=== PATIENT | female | born 1985 | race African-American/Black ===

== ENCOUNTER 2016-10-15 16:34 | Outpatient (CLI) | payer MEDICAID ==
[2016-10-15] MEDS ORDERED: HYDROXYZINE PAMOATE 50 MG CAPSULE PO ONE (16:52)
[2016-10-15] MEDS ORDERED: HYDROXYZINE PAMOATE 50 MG CAPSULE ONE (16:56)
[2016-10-15 17:12] LABS: APPEARANCE,URINE CLEAR; BILIRUBIN,URINE NEGATIVE (NEGATIVE); GLUCOSE, URINE NEGATIVE (NEGATIVE); KETONES,URINE NEGATIVE (NEGATIVE); LEUKOCYTE ESTERASE,URINE NEGATIVE (NEGATIVE); NITRITE,URINE NEGATIVE (NEGATIVE); PROTEIN,URINE NEGATIVE (NEGATIVE); UROBILINOGEN,URINE NEGATIVE mg/dL (<2.0)
[2016-10-15 17:38] LABS: URINE BARBITURATES SCREEN NEGATIVE; URINE METHADONE SCREEN NEGATIVE; URINE OPIATES LOW NEGATIVE; URINE PHENCYCLIDINE SCREEN NEGATIVE
[2016-10-15 18:44] LABS: CHLAM PCR NOT DETECTED (NOT DETECT)
== END 2016-10-15 17:40 | disposition home or self-care (01) ==
LOC: LC 16:34
PROVIDERS: ATTEND Specialist
PROC: 4A1HXCZ Monitoring of Products of Conception, Cardiac Rate, External Approach (ICD-10-PCS; principal; 2016-10-15)
DX: O26.893 Other specified pregnancy related conditions, third trimester (principal); R10.2 Pelvic and perineal pain; Z3A.29 29 weeks gestation of pregnancy
CPT/HCPCS: 59899; 87210; 81001; 87081; 80307; 87491; 87591; J3490

== ENCOUNTER 2016-11-23 01:46 | Outpatient (CLI) | payer MEDICAID ==
[2016-11-23] MEDS ORDERED: ONDANSETRON 4 MG TAB.RAPDIS PO ONE (02:51)
[2016-11-23 02:52] LABS: APPEARANCE,URINE CLEAR; BILIRUBIN,URINE NEGATIVE (NEGATIVE); GLUCOSE, URINE NEGATIVE (NEGATIVE); KETONES,URINE NEGATIVE (NEGATIVE); LEUKOCYTE ESTERASE,URINE NEGATIVE (NEGATIVE); NITRITE,URINE NEGATIVE (NEGATIVE); PROTEIN,URINE NEGATIVE (NEGATIVE); URINE SPECIFIC GRAVITY 1.004; UROBILINOGEN,URINE NEGATIVE mg/dL (<2.0)
[2016-11-23] MEDS ORDERED: ONDANSETRON 4 MG TAB.RAPDIS ONE (02:57)
[2016-11-23 03:06] LABS: URINE BARBITURATES SCREEN NEGATIVE; URINE METHADONE SCREEN NEGATIVE; URINE OPIATES LOW NEGATIVE; URINE PHENCYCLIDINE SCREEN NEGATIVE
[2016-11-23] MEDS ORDERED: RINGERS SOLUTION,LACTATED 2,000 ML IV PRN (22:55)
[2016-11-23] MEDS ORDERED: HYDROXYZINE PAMOATE 50 MG CAPSULE PO ONE (23:15)
== END 2016-11-23 05:17 | disposition home or self-care (01) ==
LOC: LC 01:46
PROVIDERS: ATTEND Obstetrics & Gynecology
PROC: 4A1HXCZ Monitoring of Products of Conception, Cardiac Rate, External Approach (ICD-10-PCS; principal; 2016-11-23)
DX: O47.03 False labor before 37 completed weeks of gestation, third trimester (principal); O21.2 Late vomiting of pregnancy; Z3A.34 34 weeks gestation of pregnancy
CPT/HCPCS: 59025; 82962; 81001; 80307; S0119

== ENCOUNTER 2016-11-23 21:32 | Outpatient (CLI) | payer MEDICAID ==
--- NOTE | 2016-11-23 21:36 | Non Stress Test Report ---
Non Stress Test Datetime Report Generated by CPN: 11/23/2016 21:36 DEMOGRAPHIC Test Number: 1 EGA NST: 34.6 INDICATION Indication for Study: Ordered by Provider MONITORING Monitor Explained: Monitor Explained; Test Explained; Patient Verbalized Understanding Time on Monitor: 11/23/2016 02:01 Time off Monitor: 11/23/2016 03:00 NST Duration: 59 NST INTERVENTIONS NST Interventions: None BABY A: [id number] BABY A Movement : Present Contraction Frequency : irregular FHR Baseline : 145 Accelerations : 15X15 Variability : Moderate 6-25bpm NST Review: Meets Criteria for Reactive NST NST Review and Verified By : B Vega, RN NST Results: Reactive NST REPORT Report Trigger: Send Report
[2016-11-23 22:07] LABS: APPEARANCE,URINE CLEAR; BILIRUBIN,URINE NEGATIVE (NEGATIVE); GLUCOSE, URINE NEGATIVE (NEGATIVE); KETONES,URINE NEGATIVE (NEGATIVE); LEUKOCYTE ESTERASE,URINE NEGATIVE (NEGATIVE); NITRITE,URINE NEGATIVE (NEGATIVE); PROTEIN,URINE NEGATIVE (NEGATIVE); URINE SPECIFIC GRAVITY 1.018; UROBILINOGEN,URINE NEGATIVE mg/dL (<2.0)
[2016-11-23 22:20] LABS: URINE BARBITURATES SCREEN NEGATIVE; URINE METHADONE SCREEN NEGATIVE; URINE OPIATES LOW NEGATIVE; URINE PHENCYCLIDINE SCREEN NEGATIVE
[2016-11-23] MEDS ORDERED: HYDROXYZINE PAMOATE 50 MG CAPSULE ONE (22:59)
[2016-11-23] MEDS ORDERED: HYDROXYZINE PAMOATE 50 MG CAPSULE PO ONE (23:10)
[2016-11-23] MEDS: RINGERS SOLUTION,LACTATED 1,000 ML IV PRN (23:29)
[2016-11-24] MEDS: RINGERS SOLUTION,LACTATED 1,000 ML IV PRN (00:05)
--- NOTE | 2016-11-24 01:02 | Non Stress Test Report ---
Non Stress Test Datetime Report Generated by CPN: 11/24/2016 01:02 DEMOGRAPHIC EGA NST: 34.6 INDICATION Indication for Study: Ordered by Provider MONITORING Monitor Explained: Monitor Explained Time on Monitor: 11/23/2016 21:55 Time off Monitor: 11/24/2016 00:56 NST Duration: 181 NST INTERVENTIONS NST Interventions: IV Fluids; Reposition Patient Physician Notified NST: Jasiel BABY A Movement : Present Contraction Frequency : occasional FHR Baseline : 140 Accelerations : 15X15 Decelerations : None Variability : Moderate 6-25bpm NST Review: Meets Criteria for Reactive NST NST Review and Verified By : CHEN Salazar NST Results: Reactive NST REPORT Report Trigger: Send Report
== END 2016-11-24 01:02 | disposition home or self-care (01) ==
LOC: LC 21:32
PROVIDERS: ATTEND Specialist
PROC: 4A1HXCZ Monitoring of Products of Conception, Cardiac Rate, External Approach (ICD-10-PCS; principal; 2016-11-23)
DX: O47.03 False labor before 37 completed weeks of gestation, third trimester (principal); Z3A.34 34 weeks gestation of pregnancy
CPT/HCPCS: 59025; 81001; 80307; J3490

== ENCOUNTER 2016-11-28 11:40 | Outpatient (CLI) | payer MEDICAID ==
[2016-11-28 12:14] LABS: APPEARANCE,URINE CLEAR; BILIRUBIN,URINE NEGATIVE (NEGATIVE); GLUCOSE, URINE NEGATIVE (NEGATIVE); KETONES,URINE NEGATIVE (NEGATIVE)
[2016-11-28 12:15] LABS: LEUKOCYTE ESTERASE,URINE NEGATIVE (NEGATIVE); NITRITE,URINE NEGATIVE (NEGATIVE); PROTEIN,URINE 30 mg/dL (NEGATIVE); RBC,URINE 0-1 /HPF; UROBILINOGEN,URINE NEGATIVE mg/dL (<2.0); WBC,URINE 0-1 /HPF
[2016-11-28 12:31] LABS: URINE BARBITURATES SCREEN NEGATIVE; URINE METHADONE SCREEN NEGATIVE; URINE OPIATES LOW NEGATIVE; URINE PHENCYCLIDINE SCREEN NEGATIVE
--- NOTE | 2016-11-28 12:55 | Non Stress Test Report ---
Non Stress Test Datetime Report Generated by CPN: 11/28/2016 12:54 DEMOGRAPHIC EGA NST: 35.4 INDICATION Indication for Study: Ordered by Provider Indication for Study (NST) Other: LC MONITORING Monitor Explained: Monitor Explained; Test Explained; Patient Verbalized Understanding Time on Monitor: 11/28/2016 11:53 Time off Monitor: 11/28/2016 12:45 NST Duration: 52 NST INTERVENTIONS NST Interventions: None Physician Notified NST: Dr Payton BABY A: [id number] BABY A Movement : Present Contraction Frequency : x2 FHR Baseline : 155 Accelerations : 15X15 Decelerations : None Variability : Moderate 6-25bpm NST Review: Meets Criteria for Reactive NST NST Review and Verified By : D Bellavance RNC NST Results: Reactive NST REPORT Report Trigger: Send Report
== END 2016-11-28 12:55 | disposition home or self-care (01) ==
LOC: LC 11:40
PROVIDERS: ATTEND Student in an Organized Health Care Education/Training Program
PROC: 4A1HXCZ Monitoring of Products of Conception, Cardiac Rate, External Approach (ICD-10-PCS; principal; 2016-11-28)
DX: O47.03 False labor before 37 completed weeks of gestation, third trimester (principal); Z3A.35 35 weeks gestation of pregnancy
CPT/HCPCS: 59025; 80307; 81001

== ENCOUNTER 2016-11-28 23:45 | Observation (INO) | payer MEDICAID ==
[2016-11-29 00:29] LABS: URINE BARBITURATES SCREEN NEGATIVE; URINE METHADONE SCREEN NEGATIVE; URINE OPIATES LOW NEGATIVE; URINE PHENCYCLIDINE SCREEN NEGATIVE
[2016-11-29 00:31] LABS: APPEARANCE,URINE CLEAR; BILIRUBIN,URINE NEGATIVE (NEGATIVE); GLUCOSE, URINE NEGATIVE (NEGATIVE); KETONES,URINE NEGATIVE (NEGATIVE); LEUKOCYTE ESTERASE,URINE NEGATIVE (NEGATIVE); NITRITE,URINE NEGATIVE (NEGATIVE); PROTEIN,URINE NEGATIVE (NEGATIVE); URINE SPECIFIC GRAVITY 1.006; UROBILINOGEN,URINE NEGATIVE mg/dL (<2.0)
[2016-11-29 00:47] LABS: BACTERIA,URINE TRACE /HPF
[2016-11-29] MEDS ORDERED: TERBUTALINE SULFATE INJ/PF 1 MG/1 ML SDV SUBCUT ONE ×2 (01:07→02:18)
[2016-11-29] MEDS ORDERED: TERBUTALINE SULFATE INJ/PF 1 MG/1 ML SDV ONE (01:13)
[2016-11-29] MEDS: RINGERS SOLUTION,LACTATED 1,000 ML IV PRN ×3 (01:14→03:48)
[2016-11-29] MEDS ORDERED: NALBUPHINE HCL INJ 10 MG/1 ML AMPULE INJ ONE (01:58)
[2016-11-29] MEDS ORDERED: NALBUPHINE HCL INJ 10 MG/1 ML AMPULE ONE (02:01)
[2016-11-29] MEDS ORDERED: NIFEDIPINE 10 MG CAPSULE PO ONE ×2 (03:23→08:30)
[2016-11-29] MEDS ORDERED: NIFEDIPINE 10 MG CAPSULE ONE ×3 (03:28→03:29)
[2016-11-29] MEDS ORDERED: DIPHENHYDRAMINE HCL 50 MG CAPSULE PO ONE (05:45)
[2016-11-29] MEDS ORDERED: RINGERS SOLUTION,LACTATED 1,000 ML IV PRN (05:57)
[2016-11-29] MEDS ORDERED: DIPHENHYDRAMINE HCL 25 MG CAPSULE ONE (06:08)
[2016-11-29] MEDS ORDERED: HYDROXYZINE PAMOATE 50 MG CAPSULE PO PRN (09:23)
[2016-11-29] MEDS ORDERED: HYDROXYZINE PAMOATE 50 MG CAPSULE ONE (09:27)
[2016-11-29] MEDS ORDERED: DEXTROSE 5%-LACTATED RINGERS 1,000 ML IV PRN (09:53)
--- NOTE | 2016-12-02 15:22 | Admission Physical ---
Datetime Report Generated by CPN: 12/02/2016 15:22 CURRENT ADMISSION Chief Complaint: Uterine Contractions Indication for Induction: Not Applicable Admit Plan: Observation/Evaluation ALLERGIES Medication Allergies: Yes Medication Allergies: aspirin (11/28/2016) Medication Allergies: aspirin (11/23/2016) Medication Allergies: aspirin (10/15/2016) Medication Allergies: aspirin (05/04/2016) Latex: No Latex Allergies OBSTETRICAL HISTORY EDC: 12/29/2016 00:00 : 4 Para: 2 Term: 1 : 1 SAB: 1 IAB: 0 Ectopic: 0 Livin Cesareans: 2 VBACs: 0 Multiple Births: 0 Gestational Diabetes: Yes Rh Sensitization: No Incompetent Cervix: No GERARD: No Infertility: No ART Treatment: No Uterine Anomaly: No IUGR: No Hx Previous C/S: Yes Macrosomia: No Hx Loss/Stillborn: No PIH: No Hx : No Placenta Previa/Abruption: No Depression/PP Depression: No PTL/PROM: Yes Post Hemorrhage: No Current Procedures: Ultrasound; NST Obstetrical History Comments: G1- 11/09 C- section 26 weeker G2- 11/15 37 weeker failed G3- SAB G4- 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 Surgery: No Heart Disease: No Hosp/Surgery: Yes Autoimmune Disorder: No Anesthetic Complications: No Kidney Disease: No Abnormal Pap Smear: No Neuro/Epilepsy: No Psychiatric Disorders: No Other Medical Diseases: No Hepatitis/Liver Disease: No Significant Family History: No Varicosities/Phlebitis: No Trauma/Violence : No Thyroid Dysfunction: No Medical History Comments: hospitalized childbirth x2 INFECTIOUS HISTORY Gonorrhea: No Genital Herpes: No Chlamydia: No Tuberculosis: No Syphilis: No Hepatitis: No HIV/AIDS Exposure: No Rash or Viral Illness: No HPV: No PHYSICAL EXAM General: Normal HEENT: Normal Neurologic: Normal Thyroid: Normal Heart: Normal Lungs: Normal Breast: Deferred Back: Normal Abdomen: Normal Genitourinary Exam: Normal Extremities: Normal DTRs: Normal Pelvic Type: Adequate Vital Signs: Reviewed; Within Normal Limits VAGINAL EXAM Dilatation: ft Effacement: th Station: oop FETUS A Monitoring: External US FHR- Baseline: 130's Variability: Moderate 6-25bpm Accelerations: 15X15 Decelerations: None Admit Comment: 31yo at 35+5ega with h/o C/S x 2. She presented at approx 0130 with ctx q 1-2 minutes but no cervical change. Terb x 2 given and only minimal response. Nifedipine given. Still no cervical change at 0530. Pt agreed to Benadryl with rest and re-eval. Uterine incision not ttp. No e/o labor but ctx. may need c/s if labor or e/o uterine scar ttp PLANS FOR LABOR AND DELIVERY Labor and Delivery: None Pain Management: Spinal Feeding Preference: Both Circumcision: Yes INFORMED CONSENT Informed Consent Obtained: Section Delivery; Risks, Benefits and Alternatives Discussed Signature: with User ID: [email or web address]
--- NOTE | 2017-01-09 17:17 | PDOC DISCHARGE SUMMARY ---
General - Admit/Disc Date/PCP Admission Date/Primary Care Provider: 11/29/16 05:41 CATHY ZAVALETA MD Discharge Date: 11/30/16 - Discharge Diagnosis (1) Third trimester at less than 36 weeks Is this a current diagnosis for this admission?: Yes (2) Uterine contractions during Is this a current diagnosis for this admission?: Yes (3) Status post repeat low transverse section Is this a current diagnosis for this admission?: YesSummary: pt is 35 6/7 wks with h/o previous c/s delivery x 2 who presented to L& D with regular contractions but no cervical change. Was given tocolytics and rest. Admitted for observation in light of contractions and previous surgical deliveries. contractions were resolved and cervix never changed therefore not in labor. released home with instructions to keep appts and plan for repeat c/ section. - Additional Information Home Medications: Pnv No.122/Iron/Folic Acid [ Multi Tablet] 1 tab PO DAILY 10/15/16 Glyburide 1 tab PO BID 11/23/16 Ibuprofen [Motrin 800 mg Tablet] 800 mg PO Q8 #90 tablet 12/18/16 Oxycodone HCl/Acetaminophen [Percocet 5-325 mg Tablet] 1 tab PO Q4HP PRN #30 tablet 12/18/16 History of Present Illness History of Present Illness: NOEMY RAMIREZ is a 31 year old female Hospital Course Hospital Course: as above Physical Exam - Physical Exam General appearance: PRESENT: no acute distress, cooperative Head exam: PRESENT: atraumatic GI/Abdominal exam: PRESENT: soft - gravid abdomem Neurological exam: PRESENT: alert, oriented to time - Obstetrical Exam External Genitalia: normal Vagina: not examined Dilation (cm): 1 Effacement (%): 25 Station: -3 Fundal Height: 3/u - 4/u Tender: No
== END 2016-11-29 13:52 | disposition home or self-care (01) ==
LOC: LC 23:45 → LR 11-29 05:41
PROVIDERS: ADMIT Student in an Organized Health Care Education/Training Program; ATTEND Student in an Organized Health Care Education/Training Program
PROC: 4A0HXCZ Measurement of Products of Conception, Cardiac Rate, External Approach (ICD-10-PCS; principal; 2016-11-29)
DX: O47.03 False labor before 37 completed weeks of gestation, third trimester (principal); O24.415 Gestational diabetes mellitus in pregnancy, controlled by oral hypoglycemic drugs; Z3A.35 35 weeks gestation of pregnancy; Z87.891 Personal history of nicotine dependence
CPT/HCPCS: 82962; 81001 ×2; 80307; 59025; J3490 ×4; J2300; J3105; G0378; G0379

== ENCOUNTER 2016-11-30 18:24 | Outpatient (CLI) | payer MEDICAID ==
--- NOTE | 2016-11-30 19:12 | Non Stress Test Report ---
Non Stress Test Datetime Report Generated by CPN: 11/30/2016 19:12 DEMOGRAPHIC Test Number: 4 EGA NST: 35.6 EGA NST: 35.5 INDICATION Indication for Study: Diabetes Mellitus; Ordered by Provider MONITORING Monitor Explained: Monitor Explained; Test Explained; Patient Verbalized Understanding Time on Monitor: 11/30/2016 18:51 Time on Monitor: 11/29/2016 13:17 Time off Monitor: 11/29/2016 13:38 NST Duration: 21 NST INTERVENTIONS NST Interventions: PO Hydration; Reposition Patient NST Interventions: PO Hydration Physician Notified NST: Dr. Sonny BABY A: [id number] BABY A Contraction Frequency : X1 FHR Baseline : 145 Accelerations : 15X15 Decelerations : None Variability : Moderate 6-25bpm NST Review: Meets Criteria for Reactive NST NST Review and Verified By : Kenneth Banks RN NST REPORT Report Trigger: Send Report
[2016-11-30 19:21] LABS: APPEARANCE,URINE CLEAR; BILIRUBIN,URINE NEGATIVE (NEGATIVE); GLUCOSE, URINE NEGATIVE (NEGATIVE); KETONES,URINE NEGATIVE (NEGATIVE); LEUKOCYTE ESTERASE,URINE NEGATIVE (NEGATIVE); NITRITE,URINE NEGATIVE (NEGATIVE); PROTEIN,URINE NEGATIVE (NEGATIVE); UROBILINOGEN,URINE NEGATIVE mg/dL (<2.0)
[2016-11-30 19:27] LABS: BACTERIA,URINE 1+ /HPF
[2016-11-30] MEDS ORDERED: NIFEDIPINE 10 MG CAPSULE PO ONE ×3 (19:28→20:15)
[2016-11-30 19:31] LABS: URINE BARBITURATES SCREEN NEGATIVE; URINE METHADONE SCREEN NEGATIVE; URINE OPIATES LOW NEGATIVE; URINE PHENCYCLIDINE SCREEN NEGATIVE
[2016-11-30] MEDS ORDERED: NIFEDIPINE 10 MG CAPSULE ONE (20:03)
== END 2016-11-30 21:36 | disposition home or self-care (01) ==
LOC: LC 18:24
PROVIDERS: ATTEND Student in an Organized Health Care Education/Training Program
DX: O24.419 Gestational diabetes mellitus in pregnancy, unspecified control (principal); Z3A.35 35 weeks gestation of pregnancy
CPT/HCPCS: 59025; 81001; 80307; J3490

== ENCOUNTER 2016-12-10 14:46 | Outpatient (CLI) | payer MEDICAID ==
[2016-12-10 15:22] LABS: APPEARANCE,URINE SLIGHTLY-CLOUDY; BILIRUBIN,URINE NEGATIVE (NEGATIVE); GLUCOSE, URINE NEGATIVE (NEGATIVE); KETONES,URINE NEGATIVE (NEGATIVE); LEUKOCYTE ESTERASE,URINE NEGATIVE (NEGATIVE); NITRITE,URINE NEGATIVE (NEGATIVE); PROTEIN,URINE NEGATIVE (NEGATIVE); URINE SPECIFIC GRAVITY 1.005; UROBILINOGEN,URINE NEGATIVE mg/dL (<2.0)
[2016-12-10 15:43] LABS: URINE BARBITURATES SCREEN NEGATIVE; URINE METHADONE SCREEN NEGATIVE; URINE OPIATES LOW NEGATIVE; URINE PHENCYCLIDINE SCREEN NEGATIVE
== END 2016-12-10 15:50 | disposition home or self-care (01) ==
LOC: LC 14:46
PROVIDERS: ATTEND Student in an Organized Health Care Education/Training Program
DX: O24.415 Gestational diabetes mellitus in pregnancy, controlled by oral hypoglycemic drugs (principal); Z3A.37 37 weeks gestation of pregnancy
CPT/HCPCS: 59025; 80307; 81005

== ENCOUNTER 2016-12-16 07:46 | Outpatient (CLI) | payer MEDICAID ==
[2016-12-16 08:13] LABS: APPEARANCE,URINE CLEAR; BILIRUBIN,URINE NEGATIVE (NEGATIVE); GLUCOSE, URINE NEGATIVE (NEGATIVE); KETONES,URINE NEGATIVE (NEGATIVE); LEUKOCYTE ESTERASE,URINE NEGATIVE (NEGATIVE); NITRITE,URINE NEGATIVE (NEGATIVE); PROTEIN,URINE NEGATIVE (NEGATIVE); URINE SPECIFIC GRAVITY 1.008; UROBILINOGEN,URINE NEGATIVE mg/dL (<2.0)
[2016-12-16 08:36] LABS: URINE BARBITURATES SCREEN NEGATIVE; URINE METHADONE SCREEN NEGATIVE; URINE OPIATES LOW NEGATIVE; URINE PHENCYCLIDINE SCREEN NEGATIVE
[2016-12-16] MEDS ORDERED: HYDROXYZINE PAMOATE 50 MG CAPSULE PO ONE (08:39)
[2016-12-16] MEDS ORDERED: HYDROXYZINE PAMOATE 50 MG CAPSULE ONE (08:52)
[2016-12-16] MEDS ORDERED: RINGERS SOLUTION,LACTATED 1,000 ML IV PRN (12:40)
[2016-12-16] MEDS ORDERED: RINGERS SOLUTION,LACTATED 1,000 ML IV ONE (12:40)
[2016-12-16] MEDS ORDERED: CEFAZOLIN 2 GM/D5W RTU 50 ML IV ONE (12:40)
== END 2016-12-16 09:17 | disposition home or self-care (01) ==
LOC: LC 07:46
PROVIDERS: ATTEND Specialist
PROC: 4A1HXCZ Monitoring of Products of Conception, Cardiac Rate, External Approach (ICD-10-PCS; principal; 2016-12-16)
DX: O47.1 False labor at or after 37 completed weeks of gestation (principal); Z3A.38 38 weeks gestation of pregnancy
CPT/HCPCS: 59025; 81005; 80307; J3490

== ENCOUNTER 2016-12-16 11:40 | Inpatient (IN) | payer MEDICAID ==
[2016-12-16] MEDS ORDERED: RINGERS SOLUTION,LACTATED 1,000 ML IV ONE (12:56)
[2016-12-16] MEDS ORDERED: RINGERS SOLUTION,LACTATED 1,000 ML IV PRN (12:56)
[2016-12-16] MEDS ORDERED: CEFAZOLIN 2 GM/D5W RTU 50 ML IV ONE (12:56)
[2016-12-16] MEDS ORDERED: CITRIC ACID/SODIUM CITRATE ORAL SOLN 15 ML UDCUP ONE (13:35)
[2016-12-16] MEDS ORDERED: CEFAZOLIN 2 GM/D5W RTU 2 GM/50 ML RTUPB IV ONE (13:35)
[2016-12-16 14:02] LABS: ABSOLUTE LYMPHOCYTES (AUTO) 1.5 10^3/uL (0.5-4.7); ABSOLUTE MONOCYTES (AUTO) 0.8 10^3/uL (0.1-1.4); ABSOLUTE NEUT (AUTO) 10.4 10^3/uL (1.7-8.2); BASOPHILS % (AUTO) 0.3 % (0-2); EOSINOPHILS % (AUTO) 0.2 % (0-6); HEMATOCRIT 36.5 % (36.0-47.0); HEMOGLOBIN 11.5 g/dL (12.0-15.5); LYMPHOCYTES % (AUTO) 11.4 % (13-45); MEAN CORPUSCULAR HEMOGLOBIN 28.7 pg (27.0-33.4); MEAN CORPUSCULAR HGB CONC 31.5 g/dL (32.0-36.0); MEAN CORPUSCULAR VOLUME 91 fl (80-97); MONOCYTES % (AUTO) 6.6 % (3-13); RED CELL DISTRIBUTION WIDTH 15.3 % (11.5-14.0); SEGMENTED NEUTROPHILS % (AUTO) 81.5 % (42-78); WHITE BLOOD COUNT 12.7 10^3/uL (4.0-10.5)
[2016-12-16] MEDS ORDERED: MIDAZOLAM 2 MG/2 ML INJ ONE (14:18)
[2016-12-16] MEDS ORDERED: OXYTOCIN/NORMAL SALINE 20 UNIT/1,000 ML RTUINJ ONE (14:18)
[2016-12-16] MEDS ORDERED: FENTANYL CITRATE INJ/PF 100 MCG/2 ML AMPUL ONE (14:18)
[2016-12-16] MEDS ORDERED: OXYTOCIN 10 UNIT/ML VIAL ONE (14:18)
[2016-12-16] MEDS ORDERED: MORPHINE SULFATE 10 MG/ML INJ ONE (14:19)
[2016-12-16] MEDS ORDERED: OXYTOCIN/NORMAL SALINE 20 UNIT/1,000 ML RTUINJ INJ PRN (16:17)
[2016-12-16] MEDS ORDERED: DIPH/PERTUSS(ACELL)/TETANUS VAC/PF 0.5 ML SYR (>=10YO) IM PRN (16:17)
[2016-12-16] MEDS ORDERED: SIMETHICONE 80 MG TAB.CHEW PO PRN (16:17)
[2016-12-16] MEDS ORDERED: MEASLES,MUMPS&RUBELLA VACC/PF 0.5 ML VIAL SUBCUT PRN (16:17)
[2016-12-16] MEDS ORDERED: PROMETHAZINE HCL INJ 25 MG/1 ML VIAL IM PRN (16:17)
[2016-12-16] MEDS ORDERED: ACETAMINOPHEN 325 MG TABLET PO PRN (16:17)
[2016-12-16] MEDS ORDERED: HYDROMORPHONE HCL INJ/PF 2 MG/ML AMPULE IV PRN (16:17)
[2016-12-16] MEDS ORDERED: ONDANSETRON 4 MG TAB.RAPDIS PO PRN (16:20)
[2016-12-16] MEDS ORDERED: ONDANSETRON HCL INJ/PF 4 MG/2 ML SDV IV PRN (16:20)
[2016-12-16] MEDS ORDERED: ACETAMINOPHEN 100 ML IV ONE (16:24)
[2016-12-16] MEDS ORDERED: KETOROLAC TROMETHAMINE INJ/PF 30 MG/1 ML SDV IV ONE (16:45)
[2016-12-16] MEDS ORDERED: ACETAMINOPHEN INJ/PF 1000 MG/100 ML SDV IV ONE (16:45)
[2016-12-16] MEDS ORDERED: HYDROMORPHONE HCL INJ/PF 2 MG/ML AMPULE ONE (17:16)
--- NOTE | 2016-12-16 17:51 | Admission Physical ---
Datetime Report Generated by CPN: 12/16/2016 17:50 CURRENT ADMISSION Hx Assessment: The History has been Reviewed and is Current Chief Complaint: Uterine Contractions Chief Complaint: Uterine Contractions Indication for Induction: Not Applicable Admit Plan: Initiate Section Protocol Admit Plan: Observation/Evaluation ALLERGIES Medication Allergies: Yes Medication Allergies: aspirin (11/28/2016) Medication Allergies: aspirin (11/23/2016) Medication Allergies: aspirin (10/15/2016) Medication Allergies: aspirin (05/04/2016) Latex: No Latex Allergies OBSTETRICAL HISTORY EDC: 12/29/2016 00:00 : 4 Para: 2 Term: 1 : 1 SAB: 1 IAB: 0 Ectopic: 0 Livin Cesareans: 2 VBACs: 0 Multiple Births: 0 Gestational Diabetes: Yes Rh Sensitization: No Incompetent Cervix: No GERARD: No Infertility: No ART Treatment: No Uterine Anomaly: No IUGR: No Hx Previous C/S: Yes Macrosomia: No Hx Loss/Stillborn: No PIH: No Hx : No Placenta Previa/Abruption: No Depression/PP Depression: No PTL/PROM: Yes Post Hemorrhage: No Current Procedures: Ultrasound; NST Obstetrical History Comments: G1- 11/09 C- section 26 weeker, breech G2- 11/15 37 weeker failed G3- SAB G4- 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 Surgery: No Heart Disease: No Hosp/Surgery: Yes Autoimmune Disorder: No Anesthetic Complications: No Kidney Disease: No Abnormal Pap Smear: No Neuro/Epilepsy: No Psychiatric Disorders: No Other Medical Diseases: No Hepatitis/Liver Disease: No Significant Family History: No Varicosities/Phlebitis: No Trauma/Violence : No Thyroid Dysfunction: No Medical History Comments: hospitalized childbirth x2 c/sections INFECTIOUS HISTORY Gonorrhea: No Genital Herpes: No Chlamydia: No Tuberculosis: No Syphilis: No Hepatitis: No HIV/AIDS Exposure: No Rash or Viral Illness: No HPV: No PHYSICAL EXAM General: Normal General: Normal HEENT: Normal HEENT: Normal Neurologic: Normal Neurologic: Normal Thyroid: Normal Thyroid: Normal Heart: Normal Heart: Normal Lungs: Normal Lungs: Normal Breast: Normal Breast: Deferred Back: Normal Back: Normal Abdomen: Normal Abdomen: Normal Genitourinary Exam: Normal Genitourinary Exam: Normal Extremities: Normal Extremities: Normal DTRs: Normal DTRs: Normal Pelvic Type: Adequate Pelvic Type: Adequate Vital Signs: Reviewed; Within Normal Limits VAGINAL EXAM Dilatation: ft Effacement: th Station: oop FETUS A EGA: 38.1 EGA: 35.5 Monitoring: External US Monitoring: External US FHR- Baseline: 130's Variability: Moderate 6-25bpm Accelerations: 15X15 Decelerations: None FHR Category: Category I Admit Comment: discussed r/b/a of and consent obtained -declines btl Admit Comment: 31yo at 35+5ega with h/o C/S x 2. She presented at approx 0130 with ctx q 1-2 minutes but no cervical change. Terb x 2 given and only minimal response. Nifedipine given. Still no cervical change at 0530. Pt agreed to Benadryl with rest and re-eval. Uterine incision not ttp. No e/o labor but ctx. may need c/s if labor or e/o uterine scar ttp PLANS FOR LABOR AND DELIVERY Labor and Delivery: None Pain Management: Spinal Feeding Preference: Both Benefit of Breast Feed Discussed: Yes Circumcision: Yes INFORMED CONSENT Informed Consent Obtained: Section Delivery; Risks, Benefits and Alternatives Discussed Signature: with User ID: [email or web address] Signature: with User ID: Sara : with User ID: Sara
[2016-12-16] MEDS ORDERED: OXYTOCIN/NORMAL SALINE 1,000 ML IV PRN (18:23)
--- NOTE | 2016-12-16 18:33 | Delivery Summary ---
Del Sum A-C Datetime Report Generated by CPN: 12/16/2016 18:33 DELIVERY PERSONNEL DELIVERY PERSONNEL: [phone];[phone];[phone] Delivery Doctor:: Gina Winn MD Anesthesiologist:: Migdalia Grayson MD PASSENGER AGENT:: Franck Kruse CRNA Labor and Delivery Nurse:: Mary BERUMEN RNhand roller Nurse:: Marva Chávez RN Tobacco Feeder Catcher:: Mary BERUMEN RN/ ELLA CHÁVEZ RN Nursery Nurse:: Kecia York RN Roofer Apprentice/PRINCIPAL TECHNICAL ARCHITECT: ST Akbar Roofer Apprentice/PRINCIPAL TECHNICAL ARCHITECT: ST Serg Additional Personnel: : Jaydon JIMÉNEZ RN MATERNAL INFORMATION Delivery Anesthesia: Spinal Medications After Delivery: Pitocin Bolus-Please Comment; Pitocin Drip 20 Units/1000ml NSS; Other-Please Comment Meds After Delivery Comment: cytotec 1000mcg ME by MD Maternal Complications: None LABOR SUMMARY EDC: 12/29/2016 00:00 No. Babies in Womb: 1 Attempted: No Labor Anesthesia: None LABOR INFORMATION Reason for Induction: Not Applicable Oxytocin: N/A Group B Beta Strep: negative Antibiotics # of Doses: 0 Steroids Given: None Reason Steroids Not Administered: Not Applicable MEMBRANES Membranes Rupture Method: Artificial Rupture of Membranes: 12/16/2016 14:43 Length of Rupture (hr): 0.02 Amniotic Fluid Color: Clear STAGES OF LABOR Stage 3 hr: 0 Stage 3 min: 2 CSECTION DELIVERY Primary Indication: REPEAT C SECTION IN LABOR CSection Urgency: Non-Scheduled CSection Incidence: Repeat Labor: Labor Elective: Nonelective CSection Incision: Lower Uterine Transverse BABY A INFORMATION Infant Delivery Date/Time: 12/16/2016 14:44 Method of Delivery: Born in Route : No : N/A Forceps: N/A Vacuum Extraction: N/A Shoulder Dystocia : No PRESENTATION/POSITION BABY A Presentation: Cephalic Cephalic Presentation: Vertex Breech Presentation: N/A PLACENTA INFORMATION BABY A Placenta Delivery Time : 12/16/2016 14:46 Placenta Method of Delivery: Manual Removal Placenta Status: Delivered SCORES BABY A Heart Rate 1 min: >100 bpm Resp Effort 1 min: Good Cry Reflex Irritability 1 min: Cough or Sneeze or Pulls Away Muscle Tone 1 min: Active Motion Color 1 min: Blue/Pale Resuscitation Effort 1 min: Tactile Stimulation SCORE 1 MIN: 8 Heart Rate 5 min: >100 bpm Resp Effort 5 min: Good Cry Reflex Irritability 5 min: Cough or Sneeze or Pulls Away Muscle Tone 5 min: Active Motion Color 5 min: Body [place], Extremities Blue Resuscitation Effort 5 min: Tactile Stimulation SCORE 5 MIN: 9 INFANT INFORMATION BABY A Gestational Age at Delivery: 38.1 Gestational Status: Early Term- 37- 38.6 Weeks Infant Outcome : Liveborn Infant Condition : Stable Infant Sex: Male IDENTIFICATION BABY A Infant Verification Date/Time: 12/16/2016 14:55 ID Band Number: [id number] Mother's Name Verified: Yes Infant RN Verifying : Mary BERUMEN RN Additional Verifying Personnel: BL ROULUND, RN WEIGHT/LENGTH BABY A Infant Birthweight (gm): 2765 Infant Weight (lb): 6 Infant Weight (oz): 2 Infant Length (in): 19.25 Length (cm): 48.90 CORD INFORMATION BABY A No. Cord Vessels: 3 Nuchal Cord : Around Neck x1, Loose Cord Blood Taken: Yes-For Eval (Mom's Blood Type - or O+) Suction: None ASSESSMENT BABY A Skin to Skin: Yes Skin to Skin Time (min): 5 BABY B INFORMATION : N/A
[2016-12-16] MEDS: IBUPROFEN 800 MG TABLET PO SCH ×2 (20:38→23:31)
[2016-12-16] MEDS: DOCUSATE SODIUM 100 MG CAPSULE PO SCH (20:38)
[2016-12-16] MEDS ORDERED: KETOROLAC TROMETHAMINE INJ/PF 30 MG/1 ML SDV IV SCH (22:00)
[2016-12-17] MEDS: OXYCODONE-ACETAMINOPHEN 5-325 MG TABLET PO PRN ×2 (00:23→10:59)
[2016-12-17] MEDS: IBUPROFEN 800 MG TABLET PO SCH ×3 (06:16→17:57)
[2016-12-17 06:37] LABS: HEMATOCRIT 31.6 % (36.0-47.0); HEMOGLOBIN 10.1 g/dL (12.0-15.5); HGB HCT DIFFERENCE -1.3; MEAN CORPUSCULAR HEMOGLOBIN 29.1 pg (27.0-33.4); MEAN CORPUSCULAR VOLUME 91 fl (80-97); RED BLOOD COUNT 3.47 10^6/uL (3.72-5.28); RED CELL DISTRIBUTION WIDTH 15.2 % (11.5-14.0)
[2016-12-17 06:56] LABS: ALBUMIN 3.1 g/dL (3.5-5.0); ANION GAP 10 (5-19); BLOOD UREA NITROGEN 4 mg/dL (7-20); CALCIUM 8.7 mg/dL (8.4-10.2); CARBON DIOXIDE 22 mmol/L (22-30); CHLORIDE 103 mmol/L (98-107); CREATININE RESULT 0.52 mg/dL (0.52-1.25); GLUCOSE 91 mg/dL (75-110); POTASSIUM 4.1 mmol/L (3.6-5.0); SODIUM 135.4 mmol/L (137-145); TOTAL PROTEIN 5.8 g/dL (6.3-8.2)
[2016-12-17 06:57] LABS: ALANINE AMINOTRANSFERASE 29 U/L (9-52); ALKALINE PHOSPHATASE 112 U/L (38-126); ASPARTATE AMINO TRANSFERASE 29 U/L (14-36); BILIRUBIN,DIRECT 0.3 mg/dL (0.0-0.4); BILIRUBIN,TOTAL 0.5 mg/dL (0.2-1.3); LDH 745 U/L (313-618)
[2016-12-17] MEDS: DOCUSATE SODIUM 100 MG CAPSULE PO SCH ×2 (09:41→17:57)
[2016-12-17] MEDS: PRENATAL VITAMIN W-O CA NO5/FE FUMARATE/FA CAPSULE PO SCH (09:42)
--- NOTE | 2016-12-17 09:57 | PDOC PROGRESS REPORT ---
Subjective-OB Subjective: Post Delivery Day: 2 31 year old. Denies any needs at this time , passing gas, tolerating diet, lochia is stable, pain well controlled, voiding without difficulty. Physical Exam (OB) Vital Signs: Temp Pulse Resp BP Pulse Ox 99.2 F 115 H 18 143/81 H 100 12/17/16 07:23 12/17/16 07:23 12/17/16 07:23 12/17/16 07:23 12/17/16 07:23 Intake & Output 12/16/16 12/17/16 12/18/16 06:59 06:59 06:59 Intake Total 2100 Output Total 1600 Balance 500 Weight 70.45 kg - PIH/Pre-Eclampsia Clonus: Negative - Dressing Removed: No Incision: Dressing Closure Type: Sutures - Lochia Lochia Amount: Scant < 10 ml Lochia Color: Rubra/Red - Abdomen Description: Soft, Round Hernia Present: No Fundal Description: Firm, Midline Fundal Height: u/u - u/2 Objective-Diagnostic Laboratory: 12/17/16 05:53 12/17/16 05:53 12/16/16 12/16/16 12/17/16 13:27 13:27 05:53 WBC 12.7 H 16.0 H RBC 4.00 3.47 L Hgb 11.5 L 10.1 L Hct 36.5 31.6 L MCV 91 91 MCH 28.7 29.1 MCHC 31.5 L 32.0 RDW 15.3 H 15.2 H Plt Count 263 235 Seg Neutrophils % 81.5 H Lymphocytes % 11.4 L Monocytes % 6.6 Eosinophils % 0.2 Basophils % 0.3 Absolute Neutrophils 10.4 H Absolute Lymphocytes 1.5 Absolute Monocytes 0.8 Absolute Eosinophils 0.0 Absolute Basophils 0.0 Sodium Potassium Chloride Carbon Dioxide Anion Gap BUN Creatinine Est GFR ( Amer) Est GFR (Non-Af Amer) Glucose Calcium Total Bilirubin AST ALT Alkaline Phosphatase Total Protein Albumin Blood Type O POSITIVE Antibody Screen NEGATIVE 12/17/16 05:53 WBC RBC Hgb Hct MCV MCH MCHC RDW Plt Count Seg Neutrophils % Lymphocytes % Monocytes % Eosinophils % Basophils % Absolute Neutrophils Absolute Lymphocytes Absolute Monocytes Absolute Eosinophils Absolute Basophils Sodium 135.4 L Potassium 4.1 Chloride 103 Carbon Dioxide 22 Anion Gap 10 BUN 4 L Creatinine 0.52 Est GFR ( Amer) > 60 Est GFR (Non-Af Amer) > 60 Glucose 91 Calcium 8.7 Total Bilirubin 0.5 AST 29 ALT 29 Alkaline Phosphatase 112 Total Protein 5.8 L Albumin 3.1 L Blood Type Antibody Screen Assessment and Plan(PN) - Assessment and Plan (1) Status post repeat low transverse section Is this a current diagnosis for this admission?: YesPlan: routine post op care - Time Spent with Patient Time with patient: Less than 15 minutes Critical Time spent with patient: Less than 15 minutes Medications reviewed and adjusted accordingly: Yes - Disposition Anticipated Discharge: Home Within: within 24 hours
--- NOTE | 2016-12-17 10:07 | OPERATIVE REPORT E ---
Operative Report NAME: NOEMY RAMIREZ : 1985 AGE: 31Y DATE OF SURGERY: 12/16/2016 ROOM: 215 PREOPERATIVE DIAGNOSIS: Intrauterine at 38+ weeks in labor with history of 2 and desire for repair. POSTOPERATIVE DIAGNOSIS: Intrauterine at 38+ weeks in labor with history of 2 and desire for repair as well as extensive pelvic adhesions. OPERATION: Repeat low transverse cervical section and lysis of adhesions. SURGEON: BRODY SALINAS M.D. ANESTHESIA: Spinal. ESTIMATED BLOOD LOSS: 500 mL. TISSUE REMOVED OR ALTERED: Specimen to Pathology: Placenta. FINDINGS: Benítez male infant, vertex presentation, clear amniotic fluid, loose nuchal cord x1. scores were 9 and 9. As previously noted, the uterus was densely adhered to the anterior abdominal wall. This precluded visualization of tubes and ovaries. DESCRIPTION OF PROCEDURE: After discussing risks, benefits, and alternatives of the procedure and obtaining informed consent, the patient was taken to the operating room where a spinal anesthetic was achieved. She was positioned in the dorsal supine position with a leftward tilt. She was then prepped and draped in the usual standard fashion. A Pfannenstiel skin incision was made, and the abdomen was entered in layers in the standard fashion. In the region of the peritoneal cavity, the adhesions were lysed to allow for enough clear space to allow for delivery of the fetus's head. The left rectus muscles were incised with cautery to allow for this. Next, a low transverse cervical incision was made with the C-safe knife and the surgeon's hand, and clear amniotic fluid returned. The surgeon's hand was entered into the hysterotomy incision, and the vertex delivered easily. Nuchal cord was reduced and shoulders and body delivered easily thereafter. The cord was clamped and cut, and infant was handed to Pediatrics who were present. The placenta was manually extracted. The uterus was cleaned with a dry laparotomy sponge. The uterus was left inside due to dense adhesions. The hysterotomy incision was closed in a double-layer fashion with #0-Monocryl. The areas of lysis of adhesions of the anterior uterus to the abdominal wall were oversewn with 2-0 Vicryl. This was done to obtain hemostasis. The pelvic was irrigated and hemostasis assured. The layer of Antecede was placed over the anterior aspect of the uterus to prevent future adhesions in this region. The peritoneum was closed with 2-0 Vicryl. The subfascial spaces were inspected and noted to be hemostatic. The fascia was closed with #1-Vicryl. Subcutaneous spaces were irrigated and hemostasis obtained with cautery. Skin was closed in a subcuticular fashion with 4-0 Vicryl. An OpSite dressing was applied. Cytotec 1000 mcg per rectum was placed to help keep the uterus involuted. All sponge, needle, lap, and instrument counts were correct x2. DICTATING PHYSICIAN: BRODY SALINAS M.D. [id number] PHY#: [id number] ID: [id number] JOB#: [id number] ACCT: [id number] cc:BRODY SALINAS M.D. >
[2016-12-18] MEDS: IBUPROFEN 800 MG TABLET PO SCH ×3 (00:23→12:37)
[2016-12-18] MEDS: OXYCODONE-ACETAMINOPHEN 5-325 MG TABLET PO PRN ×2 (02:24→09:10)
[2016-12-18] MEDS: DOCUSATE SODIUM 100 MG CAPSULE PO SCH (09:10)
[2016-12-18] MEDS: PRENATAL VITAMIN W-O CA NO5/FE FUMARATE/FA CAPSULE PO SCH (09:10)
--- NOTE | 2016-12-18 12:31 | PDOC DISCHARGE SUMMARY ---
Final Diagnosis Discharge Date: 12/18/16 - Final Diagnosis (1) Status post repeat low transverse section Is this a current diagnosis for this admission?: Yes Discharge Data - Discharge Medication Home Medications: Pnv No.122/Iron/Folic Acid [ Multi Tablet] 1 tab PO DAILY 10/15/16 Glyburide 1 tab PO BID 11/23/16 Reason(s) for Admission: Ceasarean Section-Repeat Intrapartum Procedure(s): : Low Cervical, Transverse - Diagnosis Test Laboratory: Temp Pulse Resp BP Pulse Ox 97.9 F 99 16 126/68 H 100 12/18/16 11:07 12/18/16 11:07 12/18/16 11:07 12/18/16 11:07 12/18/16 11:07 12/16/16 12/17/16 13:27 05:53 RBC 4.00 3.47 L Hgb 11.5 L 10.1 L Hct 36.5 31.6 L - Discharge information/Instructions Discharge Activity: Balance Activity w/Rest Discharge Diet: Regular Disposition: HOME, SELF-CARE Follow up with: [facility] in: 1 - s/p repeat c/s
[2016-12-18 13:11] VITALS: BP 132/84
== END 2016-12-18 14:35 | disposition home or self-care (01) | DRG 766 ==
LOC: LC 11:40 → LR 12:33 → 2S 17:49
PROVIDERS: ADMIT Specialist; ATTEND Specialist
PROC: 10D00Z1 Extraction of Products of Conception, Low, Open Approach (ICD-10-PCS; principal; 2016-12-16)
PROC: 4A1HXCZ Monitoring of Products of Conception, Cardiac Rate, External Approach (ICD-10-PCS; 2016-12-16)
DX: O34.211 Maternal care for low transverse scar from previous cesarean delivery (principal); O24.425 Gestational diabetes mellitus in childbirth, controlled by oral hypoglycemic drugs; O99.89 Other specified diseases and conditions complicating pregnancy, childbirth and the puerperium; O69.81X0 Labor and delivery complicated by cord around neck, without compression, not applicable or unspecified; N73.6 Female pelvic peritoneal adhesions (postinfective); Z3A.38 38 weeks gestation of pregnancy; Z37.0 Single live birth
CPT/HCPCS: 1961; 36415; 59025; 80053; 80307; 81005; 83615; 85025; 85027; 86592; 86850; 86900; 86901; 88307; 94799; C1765; J0131; J0690; J1170; J2250; J2270; J2590; J3010; J3490

== ENCOUNTER 2017-02-27 05:06 | Emergency (ER) | payer MEDICAID ==
[2017-02-27] MEDS ORDERED: NORMAL SALINE 1000 ML 1,000 ML IV PRN (05:39)
[2017-02-27] MEDS ORDERED: ONDANSETRON HCL INJ/PF 4 MG/2 ML SDV IV ONE (05:39)
[2017-02-27] MEDS ORDERED: FAMOTIDINE INJ/PF 20 MG/2 ML SDV IV ONE (05:40)
[2017-02-27 05:49] LABS: ABSOLUTE EOSINOPHILS # (AUTO) 0.1 10^3/uL (0.0-0.6); ABSOLUTE MONOCYTES (AUTO) 0.3 10^3/uL (0.1-1.4); ABSOLUTE NEUT (AUTO) 3.7 10^3/uL (1.7-8.2); BASOPHILS % (AUTO) 0.4 % (0-2); HEMATOCRIT 33.2 % (36.0-47.0); HEMOGLOBIN 10.8 g/dL (12.0-15.5); HGB HCT DIFFERENCE -0.8; LYMPHOCYTES % (AUTO) 32.4 % (13-45); MEAN CORPUSCULAR HGB CONC 32.7 g/dL (32.0-36.0); MEAN CORPUSCULAR VOLUME 83 fl (80-97); MONOCYTES % (AUTO) 5.6 % (3-13); RED BLOOD COUNT 4.02 10^6/uL (3.72-5.28); RED CELL DISTRIBUTION WIDTH 15.7 % (11.5-14.0); SEGMENTED NEUTROPHILS % (AUTO) 60.6 % (42-78); WHITE BLOOD COUNT 6.2 10^3/uL (4.0-10.5)
[2017-02-27 05:56] LABS: ALANINE AMINOTRANSFERASE 29 U/L (9-52); ALBUMIN 4.3 g/dL (3.5-5.0); ALKALINE PHOSPHATASE 87 U/L (38-126); ANION GAP 13 (5-19); ASPARTATE AMINO TRANSFERASE 31 U/L (14-36); BILIRUBIN,DIRECT 0.4 mg/dL (0.0-0.4); BILIRUBIN,TOTAL 0.6 mg/dL (0.2-1.3); BLOOD UREA NITROGEN 8 mg/dL (7-20); CALCIUM 9.3 mg/dL (8.4-10.2); CARBON DIOXIDE 23 mmol/L (22-30); CHLORIDE 106 mmol/L (98-107); CREATININE RESULT 0.74 mg/dL (0.52-1.25); GLUCOSE 109 mg/dL (75-110); POTASSIUM 4.5 mmol/L (3.6-5.0); SODIUM 141.5 mmol/L (137-145); TOTAL PROTEIN 7.7 g/dL (6.3-8.2)
[2017-02-27 06:20] LABS: APPEARANCE,URINE CLEAR; BILIRUBIN,URINE NEGATIVE (NEGATIVE); GLUCOSE, URINE NEGATIVE (NEGATIVE); KETONES,URINE NEGATIVE (NEGATIVE); LEUKOCYTE ESTERASE,URINE NEGATIVE (NEGATIVE); NITRITE,URINE NEGATIVE (NEGATIVE); PROTEIN,URINE NEGATIVE (NEGATIVE); URINE SPECIFIC GRAVITY 1.019; UROBILINOGEN,URINE NEGATIVE mg/dL (<2.0)
--- NOTE | 2017-02-27 06:53 | ER Document Report ---
ED General - General Chief Complaint: Abdominal Pain Stated Complaint: ABDOMINAL PAIN Time Seen by Provider: 02/27/17 05:22 TRAVEL OUTSIDE OF THE [place] IN LAST 30 DAYS: No - HPI Patient complains to provider of: Nausea vomiting diarrhea Notes: Patient coming in for acute onset nausea vomiting diarrhea abdominal pain. Patient states multiple sick contacts at home. Patient denies any recent travel or antibiotics. Patient upon my evaluation resting comfortably. No signs of any obvious distress. Patient states multiple times of vomiting prior to arrival. No bloody or unusual diarrhea. - Related Data Allergies/Adverse Reactions: aspirin [Aspirin] Allergy (Verified 02/27/17 05:08) Past Medical History - Social History Smoking Status: Unknown if Ever Smoked Chew tobacco use (# tins/day): No Frequency of alcohol use: None Drug Abuse: None Family History: Reviewed & Not Pertinent Patient has suicidal ideation: No Patient has homicidal ideation: No Renal/ Medical History: Denies: Hx Peritoneal Dialysis GI Medical History: Reports: Hx Gastroesophageal Reflux Disease Psychiatric Medical History: Reports: Hx Anxiety Past Surgical History: Reports: Hx Section - x2 - Immunizations Hx Diphtheria, Pertussis, Tetanus Vaccination: Yes Review of Systems - Review of Systems Constitutional: No symptoms reported EENT: No symptoms reported Cardiovascular: No symptoms reported Respiratory: No symptoms reported Gastrointestinal: Abdominal pain, Diarrhea, Nausea, Vomiting Genitourinary: No symptoms reported Female Genitourinary: No symptoms reported Musculoskeletal: No symptoms reported Skin: No symptoms reported Hematologic/Lymphatic: No symptoms reported Neurological/Psychological: No symptoms reported -: Yes All other systems reviewed and negative Physical Exam - Vital signs Vitals: Temp Pulse Resp BP Pulse Ox 97.9 F 96 18 133/76 H 100 02/27/17 05:08 02/27/17 05:08 02/27/17 05:08 02/27/17 05:08 02/27/17 05:08 Interpretation: Normal - General General appearance: Appears well, Alert - HEENT Head: Normocephalic, Atraumatic Eyes: Normal Pupils: PERRL - Respiratory Respiratory status: No respiratory distress Chest status: Nontender Breath sounds: Normal Chest palpation: Normal - Cardiovascular Rhythm: Regular Heart sounds: Normal auscultation Murmur: No - Abdominal Inspection: Normal Distension: No distension Bowel sounds: Normal Tenderness: Nontender Organomegaly: No organomegaly - Back Back: Normal, Nontender - Extremities General upper extremity: Normal inspection, Nontender, Normal color, Normal ROM , Normal temperature General lower extremity: Normal inspection, Nontender, Normal color, Normal ROM , Normal temperature, Normal weight bearing. No: Jaren's sign - Neurological Neuro grossly intact: Yes Cognition: Normal Orientation: AAOx4 [place] Coma Scale Eye Opening: Spontaneous [place] Coma Scale Verbal: Oriented [place] Coma Scale Motor: Obeys Commands Karen Coma Scale Total: 15 Speech: Normal Motor strength normal: LUE, RUE, LLE, RLE Sensory: Normal - Psychological Associated symptoms: Normal affect, Normal mood - Skin Skin Temperature: Warm Skin Moisture: Dry Skin Color: Normal Course - Re-evaluation Re-evalutation: 02/27/17 06:46 The patient presents with nausea vomiting diarrhea without signs of peritonitis or other life-threatening or serious etiology. The patient appears stable for discharge and has been instructed to return immediately if the symptoms worsen in any way, or in 8-12hr if not improved for re-evaluation. The patient has been instructed to return if the symptoms worsen or change in any way. - Vital Signs Vital signs: Temp Pulse Resp BP Pulse Ox 97.9 F 96 18 133/76 H 100 02/27/17 05:08 02/27/17 05:08 02/27/17 05:08 02/27/17 05:08 02/27/17 05:08 - Laboratory Result Diagrams: 02/27/17 05:36 02/27/17 05:36 Laboratory results interpreted by me: 02/27/17 05:36 Hgb 10.8 L Hct 33.2 L RDW 15.7 H Discharge - Discharge Clinical Impression: Nausea vomiting and diarrhea Condition: Good Disposition: HOME, SELF-CARE Instructions: Gastroenteritis (adult) ([facility]) Additional Instructions: Your laboratory studies not show any signs of acute pathology or serious infection. More likely has a GI virus. Symptoms may last for 24 hours up to 96 hours. Please make sure you stay well hydrated drinking plenty of water and her fluids containing electrolytes such as Gatorade or Powerade. Return to ER symptoms worsen. Take medications as prescribed. Prescriptions: Promethazine HCl [Phenergan 25 mg Tablet] 25 mg PO Q4HP PRN #30 tablet PRN Reason: Ondansetron [Zofran Odt 4 mg Tablet] 1 - 2 tab PO Q4H PRN #30 tab.rapdis PRN Reason: For Nausea/Vomiting Forms: Return to Work Referrals: PEDRO GRACE, BUILDING CONSTRUCTION INSPECTOR-C [Primary Care Provider] - Follow up as needed
[2017-02-27 07:00] VITALS: BP 117/58
== END 2017-02-27 07:00 | disposition home or self-care (01) ==
LOC: ER 05:06
DX: R11.2 Nausea with vomiting, unspecified (principal); R19.7 Diarrhea, unspecified; R10.9 Unspecified abdominal pain; Z87.19 Personal history of other diseases of the digestive system; Z88.6 Allergy status to analgesic agent
CPT/HCPCS: 99284; 96361; 96374; 96375; 36415; 84702; 85025; 80053; 81001; J2405; J7030; S0028

== ENCOUNTER 2017-12-30 06:30 | Emergency (ER) | payer MEDICAID ==
[2017-12-30] MEDS ORDERED: NORMAL SALINE 1000 ML 1,000 ML IV ONE (07:44)
[2017-12-30] MEDS ORDERED: ONDANSETRON 4 MG TAB.RAPDIS PO ONE (07:44)
[2017-12-30] MEDS ORDERED: FAMOTIDINE INJ/PF 20 MG/2 ML SDV IV ONE (07:44)
--- NOTE | 2017-12-30 07:45 | ER Document Report ---
ED GI/ - General Chief Complaint: Nausea/Vomiting/Diarrhea Stated Complaint: NAUSEA,VOMITING,DIARRHEA Time Seen by Provider: 12/30/17 07:33 Notes: 32-year-old female patient emergency department chief complaint of nausea vomiting diarrhea and not feeling well. States that she feels dehydrated. No pinpoint pain in the abdomen. No right upper quadrant pain or guarding. No right lower quadrant pain or guarding. Does have some depression. Has been sad a little bit recently thinking about the loss of her father. Does not feel suicidal. No thoughts of harming herself or others. Sad. TRAVEL OUTSIDE OF THE [place] IN LAST 30 DAYS: No - HPI Patient complains to provider of: Abdominal pain, Diarrhea, Vomiting Onset: Yesterday Timing/Duration: Gradual - Related Data Allergies/Adverse Reactions: aspirin [Aspirin] Allergy (Verified 02/27/17 05:08) Past Medical History - General Information source: Patient - Social History Smoking Status: Never Smoker Cigarette use (# per day): No Smoking Education Provided: No Frequency of alcohol use: Occasional Drug Abuse: None Lives with: Family Family History: Reviewed & Not Pertinent Renal/ Medical History: Denies: Hx Peritoneal Dialysis GI Medical History: Reports: Hx Gastroesophageal Reflux Disease Psychiatric Medical History: Reports: Hx Anxiety Past Surgical History: Reports: Hx Section - x2 - Immunizations Hx Diphtheria, Pertussis, Tetanus Vaccination: Yes Review of Systems - Review of Systems Constitutional: denies: Fever, Malaise, Weakness EENT: No symptoms reported Cardiovascular: denies: Chest pain, Palpitations, Heart racing Respiratory: No symptoms reported Gastrointestinal: Abdominal pain, Diarrhea, Nausea, Vomiting Genitourinary: No symptoms reported Female Genitourinary: No symptoms reported Musculoskeletal: No symptoms reported Skin: No symptoms reported Hematologic/Lymphatic: No symptoms reported Neurological/Psychological: No symptoms reported Physical Exam - Vital signs Vitals: Temp Pulse Resp BP Pulse Ox 98.0 F 98 18 117/79 100 12/30/17 06:39 12/30/17 06:39 12/30/17 06:39 12/30/17 06:39 12/30/17 06:39 Interpretation: Normal - General General appearance: Appears well, Alert - HEENT Head: Normocephalic, Atraumatic Eyes: Normal Pupils: PERRL - Respiratory Respiratory status: No respiratory distress Chest status: Nontender Breath sounds: Normal Chest palpation: Normal - Cardiovascular Rhythm: Regular Heart sounds: Normal auscultation Murmur: No - Abdominal Inspection: Normal Distension: No distension Bowel sounds: Normal Tenderness: Nontender Organomegaly: No organomegaly - Back Back: Normal, Nontender - Extremities General upper extremity: Normal inspection, Nontender, Normal color, Normal ROM , Normal temperature General lower extremity: Normal inspection, Nontender, Normal color, Normal ROM , Normal temperature, Normal weight bearing. No: Jaren's sign - Neurological Neuro grossly intact: Yes Cognition: Normal Orientation: AAOx4 Karen Coma Scale Eye Opening: Spontaneous [place] Coma Scale Verbal: Oriented [place] Coma Scale Motor: Obeys Commands [place] Coma Scale Total: 15 Speech: Normal Motor strength normal: LUE, RUE, LLE, RLE Sensory: Normal - Psychological Associated symptoms: Normal affect, Normal mood - Skin Skin Temperature: Warm Skin Moisture: Dry Skin Color: Normal Course - Re-evaluation Re-evalutation: 12/30/17 09:22 This is a well-appearing female in no acute distress complaining of some dehydration nausea and vomiting. Will give IV, fluids, Pepcid, Zofran and reassess. 12/30/17 09:22 Laboratory 12/30/17 12/30/17 12/30/17 07:57 07:57 07:57 WBC 7.5 RBC 4.09 Hgb 12.4 Hct 36.6 MCV 90 MCH 30.3 MCHC 33.9 RDW 14.0 Plt Count 268 Seg Neutrophils % 69.8 Lymphocytes % 24.0 Monocytes % 5.4 Eosinophils % 0.5 Basophils % 0.3 Absolute Neutrophils 5.2 Absolute Lymphocytes 1.8 Absolute Monocytes 0.4 Absolute Eosinophils 0.0 Absolute Basophils 0.0 Sodium Cancelled Potassium Cancelled Chloride Cancelled Carbon Dioxide Cancelled Anion Gap Cancelled BUN Cancelled Creatinine Cancelled Est GFR ( Amer) Cancelled Est GFR (Non-Af Amer) Cancelled Glucose Cancelled Calcium Cancelled Total Bilirubin Cancelled Direct Bilirubin Cancelled Neonat Total Bilirubin Cancelled Neonat Direct Bilirubin Cancelled Neonat Indirect Bili Cancelled AST Cancelled ALT Cancelled Alkaline Phosphatase Cancelled Total Protein Cancelled Albumin Cancelled Lipase Cancelled Urine Color YELLOW Urine Appearance SLIGHTLY-CLOUDY Urine pH 5.0 Ur Specific [place] 1.029 Urine Protein 30 H Urine Glucose (UA) NEGATIVE Urine Ketones TRACE H Urine Blood SMALL H Urine Nitrite NEGATIVE Urine Bilirubin NEGATIVE Urine Urobilinogen 4.0 H Ur Leukocyte Esterase NEGATIVE Urine WBC (Auto) 2 Urine RBC (Auto) 14 Squamous Epi Cells Auto <1 Urine Mucus (Auto) MANY Urine Ascorbic Acid 40 H Urine HCG, Qual NEGATIVE 12/30/17 09:22 Patient is feeling much better at this time. Tolerating p.o. At this time will DC with a prescription for some Zofran, work excuse any advised to return for any worsening symptoms or concerns. - Vital Signs Vital signs: Temp Pulse Resp BP Pulse Ox 98.0 F 98 18 117/79 100 12/30/17 06:39 12/30/17 06:39 12/30/17 06:39 12/30/17 06:39 12/30/17 06:39 - Laboratory Result Diagrams: 12/30/17 07:57 12/30/17 07:57 Laboratory results interpreted by me: 12/30/17 07:57 Urine Protein 30 H Urine Ketones TRACE H Urine Blood SMALL H Urine Urobilinogen 4.0 H Urine Ascorbic Acid 40 H - EKG Interpretation by Ri EKG shows normal: Sinus rhythm, [place], Intervals, QRS Complexes, ST-T Waves Discharge - Discharge Clinical Impression: Acute gastroenteritis Condition: Good Disposition: HOME, SELF-CARE Instructions: Antinausea Medication ([facility]), Gastroenteritis (adult) ([facility]) Prescriptions: Famotidine [Pepcid 20 mg Tablet] 20 mg PO BID 7 Days #14 tablet Ondansetron [Zofran Odt 4 mg Tablet] 1 - 2 tab PO Q4H PRN #15 tab.rapdis PRN Reason: For Nausea/Vomiting Forms: Return to Work Referrals: PEDRO GRACE, MUSIC MANAGER-C [Primary Care Provider] - Follow up as needed
[2017-12-30 08:14] LABS: ABSOLUTE LYMPHOCYTES (AUTO) 1.8 10^3/uL (0.5-4.7); ABSOLUTE MONOCYTES (AUTO) 0.4 10^3/uL (0.1-1.4); ABSOLUTE NEUT (AUTO) 5.2 10^3/uL (1.7-8.2); BASOPHILS % (AUTO) 0.3 % (0-2); EOSINOPHILS % (AUTO) 0.5 % (0-6); HEMATOCRIT 36.6 % (36.0-47.0); HEMOGLOBIN 12.4 g/dL (12.0-15.5); MEAN CORPUSCULAR HEMOGLOBIN 30.3 pg (27.0-33.4); MEAN CORPUSCULAR HGB CONC 33.9 g/dL (32.0-36.0); MEAN CORPUSCULAR VOLUME 90 fl (80-97); MONOCYTES % (AUTO) 5.4 % (3-13); PLATELET COUNT 268 10^3/uL (150-450); RED BLOOD COUNT 4.09 10^6/uL (3.72-5.28); SEGMENTED NEUTROPHILS % (AUTO) 69.8 % (42-78); TOTAL CELLS COUNTED % (AUTO) 100 %; WHITE BLOOD COUNT 7.5 10^3/uL (4.0-10.5)
[2017-12-30 08:27] LABS: APPEARANCE,URINE SLIGHTLY-CLOUDY; BILIRUBIN,URINE NEGATIVE (NEGATIVE); COLOR,URINE YELLOW; GLUCOSE, URINE NEGATIVE (NEGATIVE); KETONES,URINE TRACE mg/dL (NEGATIVE); LEUKOCYTE ESTERASE,URINE NEGATIVE (NEGATIVE); NITRITE,URINE NEGATIVE (NEGATIVE); PROTEIN,URINE 30 mg/dL (NEGATIVE); URINE SPECIFIC GRAVITY 1.029
[2017-12-30] MEDS ORDERED: LORAZEPAM INJ 2 MG/1 ML VIAL IV ONE (09:33)
[2017-12-30 10:08] LABS: ALANINE AMINOTRANSFERASE 23 U/L (9-52); ALBUMIN 4.4 g/dL (3.5-5.0); ALKALINE PHOSPHATASE 73 U/L (38-126); ANION GAP 11 (5-19); ASPARTATE AMINO TRANSFERASE 15 U/L (14-36); BILIRUBIN,DIRECT 0.2 mg/dL (0.0-0.4); BILIRUBIN,TOTAL 0.5 mg/dL (0.2-1.3); BLOOD UREA NITROGEN 7 mg/dL (7-20); CARBON DIOXIDE 25 mmol/L (22-30); CHLORIDE 108 mmol/L (98-107); GLUCOSE 116 mg/dL (75-110); LIPASE 56.4 U/L (23-300); POTASSIUM 3.6 mmol/L (3.6-5.0); SODIUM 143.8 mmol/L (137-145); TOTAL PROTEIN 7.2 g/dL (6.3-8.2)
[2017-12-30 11:10] VITALS: BP 123/70
--- NOTE | 2017-12-30 15:08 | EKG REPORT ---
SEVERITY:- BORDERLINE ECG - SINUS RHYTHM BORDERLINE T WAVE ABNORMALITIES : Confirmed by: Ya Osorio MD 30-Dec-2017 15:08:06
== END 2017-12-30 10:45 | disposition home or self-care (01) ==
LOC: ER 06:30
DX: K52.9 Noninfective gastroenteritis and colitis, unspecified (principal); R11.2 Nausea with vomiting, unspecified; R10.9 Unspecified abdominal pain; F32.9 Major depressive disorder, single episode, unspecified; Z88.6 Allergy status to analgesic agent
CPT/HCPCS: 93005; 99284; 96361; 96374; 96375; 36415; 83690; 85025; 81025; 80053; 81001; 93010; S0119; J2060; J7030; S0028

== ENCOUNTER 2018-01-31 06:11 | Emergency (ER) | payer MEDICAID ==
[2018-01-31] MEDS ORDERED: DICYCLOMINE HCL 20 MG TABLET PO ONE (06:54)
[2018-01-31] MEDS ORDERED: ONDANSETRON 4 MG TAB.RAPDIS PO ONE (06:54)
[2018-01-31 07:04] LABS: ABSOLUTE LYMPHOCYTES (AUTO) 2.5 10^3/uL (0.5-4.7); ABSOLUTE MONOCYTES (AUTO) 0.6 10^3/uL (0.1-1.4); ABSOLUTE NEUT (AUTO) 4.4 10^3/uL (1.7-8.2); BASOPHILS % (AUTO) 0.5 % (0-2); EOSINOPHILS % (AUTO) 0.3 % (0-6); HEMATOCRIT 36.2 % (36.0-47.0); HEMOGLOBIN 12.2 g/dL (12.0-15.5); LYMPHOCYTES % (AUTO) 32.8 % (13-45); MEAN CORPUSCULAR HEMOGLOBIN 29.6 pg (27.0-33.4); MEAN CORPUSCULAR HGB CONC 33.6 g/dL (32.0-36.0); MEAN CORPUSCULAR VOLUME 88 fl (80-97); MONOCYTES % (AUTO) 7.4 % (3-13); PLATELET COUNT 304 10^3/uL (150-450); RED BLOOD COUNT 4.11 10^6/uL (3.72-5.28); RED CELL DISTRIBUTION WIDTH 13.5 % (11.5-14.0); TOTAL CELLS COUNTED % (AUTO) 100 %; WHITE BLOOD COUNT 7.5 10^3/uL (4.0-10.5)
[2018-01-31 07:35] LABS: APPEARANCE,URINE SLIGHTLY-CLOUDY; BILIRUBIN,URINE NEGATIVE (NEGATIVE); COLOR,URINE YELLOW; GLUCOSE, URINE NEGATIVE (NEGATIVE); KETONES,URINE 80 mg/dL (NEGATIVE); LEUKOCYTE ESTERASE,URINE TRACE (NEGATIVE); NITRITE,URINE NEGATIVE (NEGATIVE); PROTEIN,URINE 30 mg/dL (NEGATIVE); URINE SPECIFIC GRAVITY 1.034
[2018-01-31 07:38] LABS: ALANINE AMINOTRANSFERASE 13 U/L (9-52); ALBUMIN 4.6 g/dL (3.5-5.0); ALKALINE PHOSPHATASE 84 U/L (38-126); ANION GAP 17 (5-19); ASPARTATE AMINO TRANSFERASE 21 U/L (14-36); BILIRUBIN,DIRECT 0.4 mg/dL (0.0-0.4); BILIRUBIN,TOTAL 0.7 mg/dL (0.2-1.3); BLOOD UREA NITROGEN 12 mg/dL (7-20); CALCIUM 9.6 mg/dL (8.4-10.2); CARBON DIOXIDE 23 mmol/L (22-30); CHLORIDE 104 mmol/L (98-107); GLUCOSE 91 mg/dL (75-110); POTASSIUM 3.7 mmol/L (3.6-5.0); SODIUM 143.5 mmol/L (137-145); TOTAL PROTEIN 7.9 g/dL (6.3-8.2)
[2018-01-31] MEDS ORDERED: HYDROXYZINE PAMOATE 25 MG CAPSULE PO ONE (10:01)
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
[2018-01-31 10:15] VITALS: BP 118/69
== END 2018-01-31 10:20 | disposition home or self-care (01) ==
LOC: ER 06:11
DX: R11.2 Nausea with vomiting, unspecified (principal); R19.7 Diarrhea, unspecified; F41.9 Anxiety disorder, unspecified; R10.9 Unspecified abdominal pain; F12.10 Cannabis abuse, uncomplicated; Z87.891 Personal history of nicotine dependence
CPT/HCPCS: 99284; 36415; 84702; 83690; 84703; 85025; 80053; 81001; J3490; S0119

== ENCOUNTER 2019-08-06 12:38 | Emergency (ER) | payer MEDICAID ==
[2019-08-06] MEDS ORDERED: IPRATROPIUM/ALBUTEROL 0.5-2.5 MG/3 ML AMPUL NEB ONE (13:14)
[2019-08-06] MEDS ORDERED: METHYLPREDNISOLONE INJ 125 MG/2 ML SDV IV ONE (13:14)
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
[2019-08-06 14:04] LABS: ABSOLUTE LYMPHOCYTES (AUTO) 1.2 10^3/uL (0.5-4.7); ABSOLUTE MONOCYTES (AUTO) 0.3 10^3/uL (0.1-1.4); ABSOLUTE NEUT (AUTO) 8.6 10^3/uL (1.7-8.2); BASOPHILS % (AUTO) 0.4 % (0-2); EOSINOPHILS % (AUTO) 0.1 % (0-6); HEMATOCRIT 40.2 % (36.0-47.0); HEMOGLOBIN 13.6 g/dL (12.0-15.5); LYMPHOCYTES % (AUTO) 12.2 % (13-45); MEAN CORPUSCULAR HEMOGLOBIN 31.2 pg (27.0-33.4); MEAN CORPUSCULAR HGB CONC 33.9 g/dL (32.0-36.0); MEAN CORPUSCULAR VOLUME 92 fl (80-97); PLATELET COUNT 232 10^3/uL (150-450); RED BLOOD COUNT 4.37 10^6/uL (3.72-5.28); RED CELL DISTRIBUTION WIDTH 14.5 % (11.5-14.0); SEGMENTED NEUTROPHILS % (AUTO) 84.3 % (42-78); TOTAL CELLS COUNTED % (AUTO) 100 %; WHITE BLOOD COUNT 10.2 10^3/uL (4.0-10.5)
[2019-08-06 14:19] LABS: ALBUMIN 5.2 g/dL (3.5-5.0); ALKALINE PHOSPHATASE 85 U/L (38-126); ANION GAP 13 (5-19); ASPARTATE AMINO TRANSFERASE 30 U/L (14-36); BILIRUBIN,DIRECT 0.3 mg/dL (0.0-0.4); BILIRUBIN,TOTAL 0.5 mg/dL (0.2-1.3); BLOOD UREA NITROGEN 10 mg/dL (7-20); CARBON DIOXIDE 22 mmol/L (22-30); CHLORIDE 106 mmol/L (98-107); GLUCOSE 97 mg/dL (75-110); POTASSIUM 3.8 mmol/L (3.6-5.0); TOTAL PROTEIN 8.7 g/dL (6.3-8.2)
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
[2019-08-06 15:47] VITALS: BP 118/71
== END 2019-08-06 15:46 | disposition home or self-care (01) ==
LOC: ER 12:38
DX: R06.02 Shortness of breath (principal); F12.10 Cannabis abuse, uncomplicated; R05 Cough; F41.9 Anxiety disorder, unspecified; Z87.891 Personal history of nicotine dependence; Z88.8 Allergy status to other drugs, medicaments and biological substances
CPT/HCPCS: 94640; 99285; 96374; 36415; 82375; 85025; 80053; 71046; J2930; J7620

== ENCOUNTER 2019-11-08 10:12 | Emergency (ER) | payer MEDICAID ==
[2019-11-08] MEDS ORDERED: ONDANSETRON HCL INJ/PF 4 MG/2 ML SDV IV ONE (10:50)
[2019-11-08] MEDS ORDERED: NORMAL SALINE 1000 ML 1,000 ML IV ONE ×2 (10:50→11:48)
--- NOTE | 2019-11-08 10:51 | ER Document Report ---
ED General - General Chief Complaint: Nausea/Vomiting Stated Complaint: NAUSEA/VOMITING Time Seen by Provider: 11/08/19 10:50 Primary Care Provider: MAMADOU CORNELIUS MD [ACTIVE STAFF] - Follow up as needed TAMAR GUY MD [ACTIVE STAFF] - Follow up as needed Mode of Arrival: Ambulatory Information source: Patient TRAVEL OUTSIDE OF THE [place] IN LAST 30 DAYS: No - HPI Notes: 34-year-old female presents to the emergency room for complaints of having nausea and vomiting after eating salad approximately 3 days ago and thinks she h as food poisoning. Has not tried anything [id number]. Worse with time, nothing makes better. Denies any new medications or travels. Denies any melena or hemoptysis. Patient is denying any abdominal pain just says she has an upset stomach. Patient does admit to smoking marijuana occasionally. Denies fevers, chills, chest pain,palpitations, shortness of breath, dyspnea, diarrhea, abd ominal pain, hematuria,blurred vision, double vision, loss of vision, speech changes, LH, dizziness, syncope, headaches, wheezing, ST, URI, neck pain, weakness, bowel or bladder dysfunction, saddle anesthesia, numbness or tingling in bilateral upper or lower extremities equally, muscle paralysis, weakness in bilateral upper or lower extremities equally or rash. Denies IV drug use. +Last menstrual cycle was 2 weeks ago - Related Data Allergies/Adverse Reactions: aspirin [Aspirin] Allergy (Verified 11/08/19 11:20) Past Medical History - General Information source: Patient - Social History Smoking Status: Unknown if Ever Smoked Family History: Reviewed & Not Pertinent Renal/ Medical History: Denies: Hx Peritoneal Dialysis GI Medical History: Reports: Hx Gastroesophageal Reflux Disease Psychiatric Medical History: Reports: Hx Anxiety Past Surgical History: Reports: Hx Section - x2 - Immunizations Hx Diphtheria, Pertussis, Tetanus Vaccination: Yes Review of Systems - Review of Systems Constitutional: No symptoms reported EENT: No symptoms reported Cardiovascular: No symptoms reported Respiratory: No symptoms reported Gastrointestinal: See HPI Genitourinary: No symptoms reported Female Genitourinary: No symptoms reported Musculoskeletal: No symptoms reported Skin: No symptoms reported Hematologic/Lymphatic: No symptoms reported Neurological/Psychological: No symptoms reported Physical Exam - Vital signs Vitals: Temp 98.1 F 11/08/19 10:12 - Notes Notes: MEDICATIONS: I agree with the patient medications as charted by the RN. ALLERGIES: I agree with the allergies as charted by the RN. PAST MEDICAL HISTORY/PAST SURGICAL HISTORY: Reviewed and agree as charted by RN. SOCIAL HISTORY: Reviewed and agree as charted by RN. FAMILY HISTORY: No significant familial comorbid conditions directly related to patient complaint EXAM: Reviewed vital signs as charted by RN. REVIEW OF SYSTEMS:reviewed vital signs by RN CONSTITUTIONAL : Denies fever, chills, or sweats. Denies recent illness. EENT: Denies eye, ear, throat, or mouth pain or symptoms. Denies nasal or sinus congestion or discharge. Denies throat, tongue, or mouth swelling or difficulty swallowing. CARDIOVASCULAR: Denies chest pain. Denies palpitations or racing or irregular heart beat. Denies ankle edema. RESPIRATORY: Denies cough, cold, or chest congestion. Denies shortness of breath, difficulty breathing, or wheezing. GASTROINTESTINAL: Denies abdominal pain or distention. Reports nausea, vomiting. Denies diarrhea. Denies blood in vomitus, stools, or per rectum. Denies black, tarry stools. Denies constipation. GENITOURINARY: Denies difficulty urinating, painful urination, burning, frequency, blood in urine, or discharge. FEMALE GENITOURINARY: Denies vaginal bleeding, heavy or abnormal periods, irregular periods. Denies vaginal discharge or odor. MUSCULOSKELETAL: Denies back or neck pain or stiffness. Denies joint pain or swelling. SKIN: Denies rash, lesions or sores. HEMATOLOGIC : Denies easy bruising or bleeding. LYMPHATIC: Denies swollen, enlarged glands. NEUROLOGICAL: Denies confusion or altered mental status. Denies passing out or loss of consciousness. Denies dizziness or lightheadedness. Denies headache. Denies weakness or paralysis or loss of use of either side. Denies problems with gait or speech. Denies sensory loss, numbness, or tingling. Denies seizures. PSYCHIATRIC: Denies anxiety or stress. Denies depression, suicidal ideation, or homicidal ideation. ALL OTHER SYSTEMS REVIEWED AND NEGATIVE. PHYSICAL EXAMINATION: GENERAL: Well-appearing, well-nourished and in no acute distress. HEAD: Atraumatic, normocephalic. EYES: Pupils equal round and reactive to light, extraocular movements intact, conjunctiva are normal. ENT: Nares patent, oropharynx clear without exudates. Moist mucous membranes. NECK: Normal range of motion, supple without lymphadenopathy LUNGS: Breath sounds clear to auscultation bilaterally and equal. No wheezes rales or rhonchi. HEART: Regular rate and rhythm without murmurs ABDOMEN: Soft, nontender, nondistended abdomen. No guarding, no rebound. No masses appreciated. Female : deferred Musculoskeletal: Normal range of motion, no pitting or edema. No cyanosis. NEUROLOGICAL: Cranial nerves grossly intact. Normal speech, normal gait. Normal sensory, motor exams PSYCH: Normal mood, normal affect. SKIN: Warm, Dry, normal turgor, no rashes or lesions noted. Dictation was performed using [employer] voice recognition software Course - Re-evaluation Re-evalutation: 11/08/19 14:23 Afebrile vital stable no distress. Nurses notes reviewed. CBC negative for leukocytosis or anemia, CMP negative for medical renal dysfunction, no electrolyte disturbances. Urinalysis does show leukoesterase but negative nitrites, does show some hematuria, proteinuria and ketones. Will do a urine culture. Patient given 2 L of IV fluids with Zofran. On reevaluation patient states that her nausea has subsided and she feels much better. Discussed with patient that smoking marijuana can cause cyclic vomiting. Discussed with patient follow a bland diet, such as rice, bananas, apples, toast etc. Discussed following up with her primary care provider within the next 24 to 48 hours. After performing a Medical Screening Examination, I estimate there is LOW risk for ACUTE APPENDICITIS, BOWEL OBSTRUCTION, ACUTE CHOLECYSTITIS, PERFORATED DIVERTICULITIS, INCARCERATED HERNIA, PANCREATITIS, PELVIC INFLAMMATORY DISEASE, PERFORATED ULCER, ECTOPIC , or TUBO-OVARIAN ABSCESS, thus I consider the discharge disposition reasonable. Also, there is no evidence or peritonitis, sepsis, or toxicity. I have reevaluated this patient multiple times and no significant life threatening changes are noted. The patient and I have discussed the diagnosis and risks, and we agree with discharging home with close follow-up with the understanding that symptoms and presentations can change. We also discussed returning to the Emergency Department immediately if new or worsening symptoms occur. We have discussed the symptoms which are most concerning (e.g., bloody stool, fever, changing or worsening pain, vomiting) that necessitate immediate return. 11/08/19 14:27 11/08/19 14:27 - Vital Signs Vital signs: Temp Pulse Resp BP Pulse Ox 98.0 F 98 20 120/78 100 11/08/19 13:16 11/08/19 13:16 11/08/19 13:16 11/08/19 13:16 11/08/19 13:16 - Laboratory Result Diagrams: 11/08/19 10:40 11/08/19 10:40 Laboratory results interpreted by me: 11/08/19 11/08/19 11/08/19 10:40 10:40 10:40 RDW 14.5 H Glucose 126 H Calcium 10.3 H Total Protein 9.1 H Albumin 5.4 H Urine Protein 100 H Urine Ketones 20 H Urine Blood SMALL H Ur Leukocyte Esterase SMALL H Urine Ascorbic Acid 40 H Discharge - Discharge Clinical Impression: Nausea and vomiting, Dehydration Condition: Stable Disposition: HOME, SELF-CARE Instructions: Antinausea Medication ([facility]), Intravenous (IV) Fluids ([facility]), Vomiting ([facility]) Additional Instructions: You have been seen today in the Emergency Department for your concerns. At this time there is no obvious cause for your concerns. You may have received labs or imaging which you can receive copies of from medical records. You were given 2 L of IV fluids to help with dehydration, Zofran please take antiemetics as needed for vomiting. If your symptoms do worsen or new symptoms occur you must return immediately for further care. Either way you must follow up with the primary care physician for further evaluation. Return immediately for any new or worsening symptoms. Follow up with primary care provider, call tomorrow to make followup appointment. Prescriptions: Ondansetron [Zofran Odt 4 mg Tablet] 1 - 2 tab PO Q4H PRN #15 tab.rapdis PRN Reason: For Nausea/Vomiting Forms: Return to Work Referrals: MAMADOU CORNELIUS MD [ACTIVE STAFF] - Follow up as needed TAMAR GUY MD [ACTIVE STAFF] - Follow up as needed
[2019-11-08 10:59] LABS: APPEARANCE,URINE TURBID; BILIRUBIN,URINE NEGATIVE (NEGATIVE); COLOR,URINE YELLOW; GLUCOSE, URINE NEGATIVE (NEGATIVE); KETONES,URINE 20 mg/dL (NEGATIVE); LEUKOCYTE ESTERASE,URINE SMALL (NEGATIVE); NITRITE,URINE NEGATIVE (NEGATIVE); PROTEIN,URINE 100 mg/dL (NEGATIVE); URINE SPECIFIC GRAVITY 1.032; UROBILINOGEN,URINE NEGATIVE mg/dL (<2.0)
[2019-11-08 11:01] LABS: ABSOLUTE LYMPHOCYTES (AUTO) 1.6 10^3/uL (0.5-4.7); ABSOLUTE MONOCYTES (AUTO) 0.4 10^3/uL (0.1-1.4); ABSOLUTE NEUT (AUTO) 5.7 10^3/uL (1.7-8.2); BASOPHILS % (AUTO) 0.4 % (0-2); EOSINOPHILS % (AUTO) 0.2 % (0-6); HEMATOCRIT 40.6 % (36.0-47.0); HEMOGLOBIN 13.7 g/dL (12.0-15.5); MEAN CORPUSCULAR HEMOGLOBIN 30.5 pg (27.0-33.4); MEAN CORPUSCULAR HGB CONC 33.7 g/dL (32.0-36.0); MEAN CORPUSCULAR VOLUME 91 fl (80-97); MONOCYTES % (AUTO) 5.5 % (3-13); PLATELET COUNT 277 10^3/uL (150-450); RED BLOOD COUNT 4.48 10^6/uL (3.72-5.28); RED CELL DISTRIBUTION WIDTH 14.5 % (11.5-14.0); SEGMENTED NEUTROPHILS % (AUTO) 73.9 % (42-78); TOTAL CELLS COUNTED % (AUTO) 100 %; WHITE BLOOD COUNT 7.8 10^3/uL (4.0-10.5)
[2019-11-08 11:17] LABS: ALBUMIN 5.4 g/dL (3.5-5.0); ALKALINE PHOSPHATASE 77 U/L (38-126); ANION GAP 13 (5-19); ASPARTATE AMINO TRANSFERASE 27 U/L (14-36); BILIRUBIN,TOTAL 0.7 mg/dL (0.2-1.3); BLOOD UREA NITROGEN 16 mg/dL (7-20); CALCIUM 10.3 mg/dL (8.4-10.2); CARBON DIOXIDE 25 mmol/L (22-30); CHLORIDE 102 mmol/L (98-107); GLUCOSE 126 mg/dL (75-110); POTASSIUM 3.6 mmol/L (3.6-5.0); TOTAL PROTEIN 9.1 g/dL (6.3-8.2)
[2019-11-08 13:17] VITALS: BP 120/78
== END 2019-11-08 13:19 | disposition home or self-care (01) ==
LOC: ER 10:12
DX: R11.2 Nausea with vomiting, unspecified (principal); E86.0 Dehydration; R80.9 Proteinuria, unspecified; R31.9 Hematuria, unspecified; Z87.19 Personal history of other diseases of the digestive system; Z88.8 Allergy status to other drugs, medicaments and biological substances
CPT/HCPCS: 99284; 96361; 96374; 36415; 87086; 83690; 85025; 80053; 81001; J2405; J7030

== ENCOUNTER → 2020-06-13 | Outpatient (CLI) | payer MEDICAID | LOC: OD 16:56 | PROVIDERS: ATTEND Nurse Practitioner Family | DX: R30.0 Dysuria (principal) | CPT/HCPCS: 87086; 87088 ==